=== PATIENT | female | born 1935 ===

== ENCOUNTER 2017-07-22 07:57 | Day surgery (SDC) | payer OTHER | END 2017-07-22 17:10 | disposition home or self-care (01) | LOC: CIR.AMB 07:57 | DX: S63.32 Traumatic rupture of radiocarpal ligament (principal); M94.231 Chondromalacia, right wrist ==

== ENCOUNTER 2018-12-03 14:38 | Emergency (ER) | payer OTHER ==
[~2018-12-03] VITALS: Ht 167.6 cm; Wt 77.1 kg
[2018-12-03] MEDS ORDERED: COZAAR50 MG PO (14:47)
== END 2018-12-03 16:18 | disposition home or self-care (01) ==
LOC: ER 14:38
DX: L02.211 Cutaneous abscess of abdominal wall (principal); B95.61 Methicillin susceptible Staphylococcus aureus infection as the cause of diseases classified elsewhere